=== PATIENT | female | born 1985 | race African-American/Black ===

== ENCOUNTER 2018-01-03 04:34 | Emergency (ER) | payer MEDICARE, OTHER ==
[~2018-01-03] VITALS: Ht 157.5 cm; Wt 120.5 kg
[~2018-01-03 04:34] MED LIST: NOCURR
[2018-01-03] MEDS ORDERED: METR500 PO (04:41)
[2018-01-03] MEDS ORDERED: CIPR-279 PO (04:41)
[2018-01-03 06:20] LABS: ANION GAP 7 mmol/L (8-16); CALCIUM, TOTAL 8.6 mg/dL (8.8-10.5); CARBON DIOXIDE 27 mmol/L (22-29); CHLORIDE 104 mmol/L (98-107); CREATININE 0.79 mg/dL (0.60-1.30); GLOMERULAR FILTR. RATE CALC > 60 mL/min (>60); GLUCOSE,RANDOM 119 mg/dL (70-110); POTASSIUM 3.5 mmol/L (3.5-5.1); SODIUM SERUM 138 mmol/L (136-145); UREA NITROGEN, BLOOD 6 mg/dL (7-18)
[2018-01-03 06:27] LABS: ALANINE AMINOTRANSFERASE 35 U/L (12-78); ALBUMIN 2.8 g/dL (3.4-5.0); ALKALINE PHOSPHATASE 53 U/L (46-116); ASPARTATE AMINOTRANSFERASE 12 U/L (15-37); BILIRUBIN,TOTAL 0.2 mg/dL (0.1-1.0); LIPASE 95 U/L (73-393); TOTAL PROTEIN, SERUM 7.1 g/dL (6.4-8.2)
[2018-01-03] MEDS ORDERED: BARIUM SULFATE 0.1% SUSPENSION 450 ML BOTTLE PO ONE (06:30)
[2018-01-03 06:40] LABS: BASOPHILS % (AUTO) 0.2 % (0.0-2.0); EOSINOPHILS % (AUTO) 1.5 % (1.0-6.0); HEMATOCRIT 36.9 % (36-46); HEMOGLOBIN 12.6 g/dL (12.0-16.0); LYMPHOCYTES # (AUTO) 1.6 K/uL (1.0-4.8); LYMPHOCYTES % (AUTO) 16.4 % (22.0-44.0); MEAN CORPUSCULAR VOLUME 91 fL (80-100); MONOCYTES # (AUTO) 0.8 K/uL (0.1-1.0); MONOCYTES % (AUTO) 7.9 % (2.0-9.0); NEUTROPHILS # (AUTO) 7.4 K/uL (1.8-7.7); PLATELET COUNT (AUTO) 275 K/uL (150-450); RED BLOOD CELL COUNT(AUTO) 4.05 MIL/uL (4.00-5.20); RED CELL DISTRIBUTION WIDTH 13.4 % (11.5-14.5)
[2018-01-03] MEDS ORDERED: SODIUM CHLORIDE 0.9% 100 ML ONE (06:52)
[2018-01-03] MEDS ORDERED: IOVERSOL 350 MG/ML 150 ML VIAL ONE (06:52)
[2018-01-03] MEDS ORDERED: ONDANSETRON HCL 4 MG/2 ML VIAL IVP ONE (07:15)
[2018-01-03] MEDS ORDERED: KETOROLAC TROMETHAMINE 30 MG/ML VIAL IVP ONE (07:15)
[2018-01-03 07:24] LABS: APPEARANCE,URINE CLOUDY (CLEAR); GLUCOSE, URINE (UA) NEGATIVE (NEGATIVE); KETONES,URINE TRACE mg/dL (NEGATIVE); LEUKOCYTE ESTERASE ,URINE SMALL (NEGATIVE); NITRATE,URINE POSITIVE (NEGATIVE); OCCULT BLOOD,URINE NEGATIVE (NEGATIVE); PH,URINE 6.5 (5.0-8.0); PROTEIN,URINE POS 1+ (NEGATIVE)
[2018-01-03 07:28] LABS: AMPHET/METH SCREEN,URINE NEGATIVE (NEGATIVE); BARBITURATE SCREEN, URINE NEGATIVE (NEGATIVE); BENZODIAZEPINES SCREEN,URINE NEGATIVE (NEGATIVE); CANNABINOID SCREEN,URINE NEGATIVE (NEGATIVE); COCAINE SCREEN,URINE NEGATIVE (NEGATIVE); METHADONE SCREEN, URINE NEGATIVE (NEGATIVE); OPIATE SCREEN,URINE NEGATIVE (NEGATIVE)
[2018-01-03 07:30] LABS: BILIRUBIN,URINE PRELIM. POSITIVE (NEGATIVE)
[2018-01-03 07:34] LABS: BACTERIA,URINE Few /HPF (None Seen); PHENCYCLIDINE SCREEN,URINE NEGATIVE (NEGATIVE); RBC,URINE None Seen /HPF (0-2); SQUAMOUS EPITHELIAL CELL,UR Many /LPF (None Seen); WBC,URINE 0-2 /HPF (0-5)
[2018-01-03 08:00] LABS: CREATINE KINASE, TOTAL 77 U/L (26-192)
[2018-01-03] MEDS ORDERED: CefTRIAXone SODIUM 1 GM in DEXTROSE 5%-WATER 10 ML IV ONE (08:00)
[2018-01-03 08:01] LABS: CREATINE KINASE MB < 0.5 ng/mL (0-5)
[2018-01-03 09:00] VITALS: BP 141/81
[2018-01-03] MEDS ORDERED: SODIUM PHOS/SODIUM BIPHOS 133 ML ENEMA PR ONE (09:15)
[2018-01-03] MEDS ORDERED: POLYETHYLENE GLYCOL 3350 17 GM PACKET PO ONE (09:15)
== END 2018-01-03 10:04 | disposition home or self-care (01) ==
LOC: EMS 04:34
DX: K59.00 Constipation, unspecified (principal); N39.0 Urinary tract infection, site not specified; K57.90 Diverticulosis of intestine, part unspecified, without perforation or abscess without bleeding; E66.9 Obesity, unspecified; I10 Essential (primary) hypertension; F17.210 Nicotine dependence, cigarettes, uncomplicated; Z68.42 Body mass index [BMI] 45.0-49.9, adult
CPT/HCPCS: 36415; 74177; 80053; 80307; 81001; 82550; 82553; 83690; 84484; 84703; 85025; 93005; 96374; 96375; 99285; J0696; J1885; J2405; J7050; J7060; Q9967

== ENCOUNTER 2025-07-01 12:05 | Emergency (ER) | payer MEDICARE, OTHER ==
[~2025-07-01] VITALS: Ht 157.5 cm; Wt 101.0 kg
[~2025-07-01 12:05] MED LIST changes: +CIPR-279 PO; +METR500 PO; -NOCURR
[2025-07-01 12:18] VITALS: BP 120/78; PULSE 93; RESP 18; TEMP 98.1; O2SAT 99
[2025-07-01] MEDS ORDERED: DOXY-354 PO (13:08)
[2025-07-01] MEDS: DOXYCYCLINE HYCLATE 100 MG TABLET PO ONE (13:26)
== END 2025-07-01 13:36 | disposition home or self-care (01) ==
LOC: EMS 12:30
DX: L02.411 Cutaneous abscess of right axilla (principal); I10 Essential (primary) hypertension; F17.210 Nicotine dependence, cigarettes, uncomplicated; Z98.890 Other specified postprocedural states; Z90.49 Acquired absence of other specified parts of digestive tract; Z79.899 Other long term (current) drug therapy
CPT/HCPCS: 99283